=== PATIENT | female | born 1985 | race Caucasian/White ===

== ENCOUNTER 2017-10-14 09:13 | Emergency (ER) | payer OTHER ==
[~2017-10-14] VITALS: Ht 160 cm; Wt 54.9 kg
[~2017-10-14 09:13] MED LIST: AMPDEX10CR; Ativan1 MG PO; CEPH500 PO; Esgic Tablet1 EACH PO; HYDHCL25 PO; IBUP400 PO; Keflex500 MG PO; Norco 5-325 Ta1 EACH PO; OXYC5; SERT100; SULTRIDS PO; Verotin-Gr Cap1 EACH PO
[2017-10-14 10:05] LABS: Source, Urine Voided
[2017-10-14 10:16] LABS: Appearance, Urine Cloudy (Clear); Bilirubin, Urine Neg (Neg); Blood, Urine 5+ (Neg); Color, Urine Brown (P-Yellow); Glucose Qualitative, Urine Neg (Neg); Ketones, Urine 1+ (Neg); Leukocyte Esterase, Urine 3+ (Neg); Nitrite, Urine Pos (Neg); Protein, Urine 4+ (Neg); Urobilinogen, Urine 1+ (Normal)
[2017-10-14 10:31] LABS: Bacteria Many /hpf; Red Blood Cells, Urine TNTC /hpf (0-2); Squamous Epithelial Cells Few /hpf (Few); White Blood Cells, Urine TNTC /hpf (0-5)
[2017-10-14] MEDS ORDERED: NICO21TP (10:52)
[2017-10-14] MEDS ORDERED: ACYC400 PO (10:52)
[2017-10-14] MEDS ORDERED: Pyridium200 MG PO (11:01)
[2017-10-14] MEDS ORDERED: Macrodantin100 MG PO (11:01)
[2017-10-14] MEDS ORDERED: HYDR1TAB94 PO (11:01)
== END 2017-10-14 11:40 | disposition home or self-care (01) ==
LOC: ER 09:13
PROVIDERS: Emergency Medicine
DX: R10.30 Lower abdominal pain, unspecified (principal); R31.9 Hematuria, unspecified; Z79.899 Other long term (current) drug therapy; Z87.891 Personal history of nicotine dependence
CPT/HCPCS: 81001; 81025; 87077; 87086; 87186; 99283

== ENCOUNTER 2021-04-10 18:23 | Emergency (ER) | payer OTHER | END 2021-04-10 20:40 | disposition home or self-care (01) | LOC: ER 18:23 | DX: U07.1 COVID-19 (principal); Z79.899 Other long term (current) drug therapy; Z87.891 Personal history of nicotine dependence ==

== ENCOUNTER 2021-12-03 21:26 | Emergency (ER) | payer OTHER ==
[~2021-12-03] VITALS: Ht 162.6 cm; Wt 56.2 kg
[~2021-12-03 21:26] MED LIST changes: +ACET325 PO; +ACYC400 PO; +DIPH50 PO; +HYDR1TAB94 PO; +LAVAP17G PO; +Macrodantin100 MG PO; +NICO21TP; +NICO21TP TOP; +OXYACE5T PO; +Pyridium200 MG PO
[2021-12-03] MEDS ORDERED: IBUP600 PO (22:46)
== END 2021-12-03 23:06 | disposition home or self-care (01) ==
LOC: ER 21:26
DX: S60.222A Contusion of left hand, initial encounter (principal); R07.89 Other chest pain; Z87.891 Personal history of nicotine dependence; V43.92XA Unspecified car occupant injured in collision with other type car in traffic accident, initial encounter
CPT/HCPCS: 71045; 73120; 93005; 93010; 99284-25; A9270; J1885

== ENCOUNTER 2021-12-09 10:51 | Emergency (ER) | payer OTHER ==
[~2021-12-09] VITALS: Ht 162.6 cm; Wt 57.6 kg
[~2021-12-09 10:51] MED LIST changes: -ACET325 PO; -DIPH50 PO; +IBUP600 PO; -LAVAP17G PO; -NICO21TP TOP; -OXYACE5T PO
== END 2021-12-09 13:01 | disposition home or self-care (01) ==
LOC: ER 10:51
DX: S20.219A Contusion of unspecified front wall of thorax, initial encounter (principal); G43.909 Migraine, unspecified, not intractable, without status migrainosus; Z79.899 Other long term (current) drug therapy; Z87.891 Personal history of nicotine dependence; V89.2XXA Person injured in unspecified motor-vehicle accident, traffic, initial encounter
CPT/HCPCS: 71260; 96374; 99283-25; J1885; Q9967

== ENCOUNTER → 2025-09-12 | Outpatient (CLI) | payer OTHER ==
[~2025-09-12] MED LIST changes: +ACET325 PO; +DIPH50 PO; +LAVAP17G PO; +NICO21TP TOP; +OXYACE5T PO
[2025-09-12 13:05] LABS: BASOPHILS ABSOLUTE AUTO 0.03 K/mm3 (0.00-0.23); BASOPHILS PERCENT AUTO 1 % (0-2); EOSINOPHILS ABSOLUTE AUTO 0.20 K/mm3 (0.00-0.68); EOSINOPHILS PERCENT AUTO 4 % (0-6); Hematocrit 39.0 % (33.0-51.0); Hemoglobin 13.3 g/dL (11.5-16.0); IMMATURE GRAN ABSOLUTE AUTO 0.01 K/mm3 (0.00-0.10); IMMATURE GRAN PERCENT AUTO 0 % (0-1); LYMPHOCYTES ABSOLUTE AUTO 1.93 K/mm3 (0.84-5.20); LYMPHOCYTES PERCENT AUTO 36 % (21-46); MONOCYTES ABSOLUTE AUTO 0.55 K/mm3 (0.16-1.47); MONOCYTES PERCENT AUTO 10 % (4-13); Mean Corpuscular HGB Conc 34.1 g/dL (31.5-36.5); Mean Corpuscular Volume 91 fL (80-100); NEUTROPHILS ABSOLUTE AUTO 2.72 K/mm3 (1.96-9.15); NEUTROPHILS PERCENT AUTO 50 % (41-73); NRBC ABSOLUTE 0.00 K/mm3 (0.00-0.02); NRBC Auto 0.0 /100 WBC (0.0-0.2); Platelet Count 268 K/mm3 (150-400); RDW Coefficient Variation 11.9 % (11.7-14.2); RDW Standard Deviation 39.9 fL (35.1-46.3)
[2025-09-12 13:46] LABS: Alanine Aminotransfer (ALT/SGP 27.0 U/L (12-78); Albumin, Blood 4.0 g/dL (3.4-5.0); Albumin/Globulin Ratio 1.2 (0.8-1.8); Anion Gap 9.0 mmol/L (3-11); Aspartate Aminotrans (AST/SGOT 13.0 U/L (12-37); Bilirubin, Total 0.6 mg/dL (0.1-1.0); Blood Urea Nitrogen 13.0 mg/dL (8-24); CO2, Blood 24.0 mmol/L (21-32); Calcium, Blood 9.1 mg/dL (8.5-10.1); Chloride, Blood 108.0 mmol/L (98-108); Creatinine, Blood 0.62 mg/dL (0.40-1.00); Follicle Stimulating Hormone 6.6 mIU/ml; Globulin, Blood 3.3 g/dL (2.2-4.0); Glucose, Blood 104.0 mg/dL (70-99); Potassium, Blood 4.1 mmol/L (3.5-5.5); Sodium, Blood 137.0 mmol/L (136-145); Thyroid Stimulating Hormone 0.303 uIU/mL (0.360-4.800); Total Protein, Blood 7.3 g/dL (6.4-8.2)
== END ==
LOC: LAB SHORT 11:33 → LAB 11:33
PROVIDERS: Nurse Practitioner Family
DX: N92.6 Irregular menstruation, unspecified (principal); R53.81 Other malaise
CPT/HCPCS: 80053; 83001; 83002; 84443; 85025